=== PATIENT | male | born 1960 ===

== ENCOUNTER 2022-12-10 19:13 | Emergency (ER) | payer BC, SELFPAY ==
--- NOTE | ~2022-12-10 | CT_ITS ---
EXAMINATION: CT HEAD WITHOUT CONTRAST CLINICAL INFORMATION: Fall; intoxicated. COMPARISON: None. TECHNIQUE: Contiguous axial imaging was performed from the skull base to vertex without intravenous administration of contrast. Multiplanar reformatted images are submitted. This CT examination was performed using dose optimization techniques as appropriate, variously including the following: *Automated exposure control *Adjustment of mA and/or kV according to patient size (this includes techniques or standardized protocols for targeted exams where dose is matched to indication/reason for exam; i.e. extremities or head) *Use of iterative reconstruction technique DLP: 1052 mGy-cm (head and cervical spine) FINDINGS: The ventricular system is normal in size and configuration. The bilateral hemispheres and the cerebellum show no acute mass, hemorrhage, infarction or extra-axial collection. The basilar cisterns are patent, and the sulci are not widened. No acute osseous abnormality is seen. There is marked right maxillary sinusitis. The remaining paranasal sinuses are well aerated and clear. The mastoid air cells are well aerated and clear. There is a mild left frontal scalp hematoma CT/CT cervical spine wo IV con IMPRESSION: 1. No acute intracranial pathology. 2. There is a mild left frontal scalp hematoma. 3. There is marked right maxillary sinusitis. EXAMINATION: CT CERVICAL SPINE WITHOUT CONTRAST CLINICAL INFORMATION: Fall; intoxicated. COMPARISON: None. TECHNIQUE: Without the addition of intravenous contrast, multiple contiguous multidetector transaxial sections are obtained through the cervical spine. Multiplanar reformatted images are submitted. This CT examination was performed using dose optimization techniques as appropriate, variously including the following: *Automated exposure control *Adjustment of mA and/or kV according to patient size (this includes techniques or standardized protocols for targeted exams where dose is matched to indication/reason for exam; i.e. extremities or head) *Use of iterative reconstruction technique DLP: As above. FINDINGS: Vertebral body heights and alignment are normal. There is marked degenerative disease at C5-C6 and C6-C7, with disc space narrowing at vacuum phenomenon. No acute fracture or spondylolisthesis is seen. There is multi-level cervical spondylosis, most pronounced extending from C4-C5 through C6-C7. The posterior elements are intact. There is multi-level cervical facet arthropathy. The dens is intact. No prevertebral soft tissue swelling is seen. There is right apical pleural and parenchymal scarring. The bilateral lung apices appear otherwise clear. IMPRESSION: 1. No acute fracture or spondylolisthesis is seen. 2. There is multi-level cervical degenerative disc disease, spondylosis and facet arthropathy. Degenerative disc disease is most pronounced at C5-C6 and C6-C7, where it is marked. Fleischner guidelines were followed.
[2022-12-10 19:22] VITALS: BP 118/84; BP 138/84; PULSE 114; PULSE 94; RESP 18; TEMP 36.9; O2SAT 94; O2SAT 96; BMI 21.6
--- NOTE | 2022-12-10 19:43 | ED.FALL ---
HPI - Fall General Chief Complaint: Fall Stated Complaint: etoh seeking detox Time Seen by Provider: 12/10/22 19:15 Source: patient Mode of arrival: EMS History of Present Illness HPI Narrative: 62-year-old male who is brought in by EMS from that [facility] where his brother had take him for detox from alcohol. As per the brother the patient was at his home in the apartment and found by the brother on the floor. Patient reports he drinks daily and is a binge drinker and denies any history of seizures related to alcohol withdrawal. Patient does report he has high blood pressure. Related Data Allergies Allergy/AdvReac Type Severity Reaction Status Date / Time Unable to Assess Allergy Verified 12/10/22 19:35 Review of Systems Review of Systems: Pertinent positives and negatives as stated in [facility] Past Medical History Source: nursing notes reviewed Social History Social History Alcohol intake: current Alcohol intake frequency: 3 or more drinks per day Alcohol type: hard liquor Smoked in Last 30 Days: Yes Use of substances other than those prescribed or required for medical reasons: Yes Substance Use Type: Crack/Cocaine Last Used Substance: Weeks (ago) Physical Exam Vital Signs: Vital Signs: Last Vital Signs Temp 98.5 F 12/10/22 19:22 Pulse 94 12/10/22 19:22 Resp 18 12/10/22 19:22 BP 118/84 12/10/22 19:22 Pulse Ox 96 12/10/22 19:22 O2 Del Method Room Air 12/10/22 19:22 BMI result Body Mass Index 21.6 VITAL SIGNS: Reviewed. GENERAL: Well developed, well nourished, in no acute distress. HEAD: Normocephalic/there is up puncture site noted at the angle of the left jaw that is hemostatic EYES: PERRLA, EOMI EARS: Ext canals without abnormality, TMs non-bulging and non-erythematous NOSE: Nares patent bilateral OROPHARYNX: no oral lesions noted, posterior pharynx clear NECK: Supple, no adenopathy, no midline cervical spine tenderness or step-offs noted. LUNGS: Normal breath sounds. No adventitious sounds or accessory muscle use. SpO2<96> CARDIOVASCULAR: Regular rate and rhythm without noted murmurs ABDOMEN: Soft, non-tender, non-distended with bowel sounds. MUSCULOSKELETAL: No tenderness, deformities, or effusions noted on gross inspection. EXTREMITIES: No cyanosis, clubbing or edema. SKIN: Inspection of the skin reveals no rashes NEUROLOGIC: Alert and oriented x 4. Strength and sensation to light touch were grossly intact x 4. Medications Administered Discontinued Medications Generic Name Dose Route Start Last Admin Trade Name Freq PRN Reason Stop Dose Admin Diphtheria/Tetanus/Acell Pertussis 0.5 ml 12/10/22 19:35 12/10/22 20:26 Diphth,Pertus(Acell),Tet Adult 0.5 Ml Syringe IM 12/10/22 19:36 0.5 ml .ONCE ONE Administration Medical Decision Making Medical Decision Making [facility] Narrative: 62-year-old male with history and clinical presentation consistent with alcohol-related fall, will evaluate with CT of the head and neck although patient is nonfocal. Patient will also received Tdap for the injury at the left angle of the jaw. Will obtain basic labs and evaluate with see while. I reviewed all investigations and imaging studies in my interpretation is that patient has significant alcohol intoxication, he is requesting detox and is placed on a CIWA. Patient placed in physician observation because the patient needed more time for evaluation for alcohol detox. At the time observation was started the patient's vital signs were stable, patient is alert and oriented but slightly, neuro: Nonfocal, CV RRR, lungs clear Differential Diagnosis Please see the discussion above Lab Data Please see the discussion above 12/10/22 20:10 12/10/22 20:10 Labs: Lab Results 12/10/22 12/10/22 Range/Units 20:10 20:10 WBC 6.2 (4.8-10.8) X10*3/uL RBC 4.69 (4.60-5.80) X10*6/uL Hgb 11.4 L (14.0-18.0) g/dl Hct 37.1 L (42.0-52.0) % MCV 79.1 L (80.0-98.0) fL MCH 24.3 L (27.0-33.0) pg MCHC 30.7 L (31.0-36.0) g/dl RDW 16.3 H (11.0-16.0) % Plt Count 219 (160-400) X10*3/uL MPV 8.8 L (9.4-12.4) fL Immature Gran % (Auto) 0.2 (0.0-0.4) % Neut % (Auto) 52.4 (45-73) % Lymph % (Auto) 32.6 (20-40) % Mcdonough % (Auto) 10.1 (2-11) % Eos % (Auto) 3.9 (0-4) % Baso % (Auto) 0.8 (0-2) % Lymph # (Auto) 2.0 (1.2-4.9) X10*3/uL Mcdonough # (Auto) 0.6 (0.1-1.2) X10*3/uL Eos # (Auto) 0.2 (0.0-0.4) X10*3/uL Baso # (Auto) 0.1 (0.0-0.2) X10*3/uL Abs Immat Gran (auto) 0.01 (0.00-0.03) X10*3/uL Absolute Neuts (auto) 3.2 (2.0-8.3) x10*3/uL Absolute Nucleated RBC 0.000 (0.0-0.012) X10*3/uL Nucleated RBC % (auto) 0.0 (0.0-0.2) /100WBC Sodium 146 H (135-145) mmol/L Potassium 4.0 (3.3-5.1) mmol/L Chloride 114 H (96-108) mmol/L Carbon Dioxide 19 L (22-29) mmol/L Anion Gap 17 (12-20) BUN 18 H (9-16) mg/dL Creatinine 0.67 (0.5-1.4) mg/dL Estim Creat Clear Calc 98.4 Estimated GFR > 60 Random Glucose 99 (60-115) mg/dL Calcium 8.4 (8.4-10.2) mg/dL Total Bilirubin 0.4 (0.0-1.0) mg/dL AST 27 (5-37) U/L ALT 16 (0-40) U/L Alkaline Phosphatase 85 (39-117) U/L Total Protein 6.3 L (6.5-8.0) g/dL Albumin 3.5 (3.5-5.0) g/dL Ethyl Alcohol 385 H* mg/dL Radiology Impression Radiologist Impression: My interpretation is in agreement with radiology's findings. Discharge Plan Discharge Clinical Impression: Alcohol intoxication, Alcohol use disorder, Facial laceration Patient Disposition: Still a Patient
[2022-12-10 20:16] LABS: Basophils Absolute Auto 0.1 X10*3/uL (0.0-0.2); Basophils Percent Auto 0.8 % (0-2); Eosinophils Absolute Auto 0.2 X10*3/uL (0.0-0.4); Eosinophils Percent Auto 3.9 % (0-4); Hematocrit 37.1 % (42.0-52.0); Hemoglobin 11.4 g/dl (14.0-18.0); Imm Gran Abs Auto 0.01 X10*3/uL (0.00-0.03); Imm Gran Pct Auto 0.2 % (0.0-0.4); Lymphocytes Percent Auto 32.6 % (20-40); MANUAL DIFF FLAG NO; Mean Corpuscular HGB Conc 30.7 g/dl (31.0-36.0); Mean Corpuscular Hemoglobin 24.3 pg (27.0-33.0); Mean Corpuscular Volume 79.1 fL (80.0-98.0); Mean Platelet Volume 8.8 fL (9.4-12.4); Monocytes Absolute Auto 0.6 X10*3/uL (0.1-1.2); Monocytes Percent Auto 10.1 % (2-11); Neutrophils Absolute Auto 3.2 x10*3/uL (2.0-8.3); Neutrophils Percent Auto 52.4 % (45-73); Platelet Count 219 X10*3/uL (160-400); Red Blood Count 4.69 X10*6/uL (4.60-5.80); Red Cell Distribution Width 16.3 % (11.0-16.0); White Blood Count 6.2 X10*3/uL (4.8-10.8)
[2022-12-10] MEDS: Diphth,Pertus(ACell),Tet Adult 0.5 ML SYRINGE IM (20:26)
[2022-12-10 20:38] LABS: Alanine Aminotransferase 16 U/L (0-40); Albumin Level 3.5 g/dL (3.5-5.0); Alkaline Phosphatase 85 U/L (39-117); Anion Gap 17 (12-20); Aspartate Amino Transferase 27 U/L (5-37); Bilirubin Total 0.4 mg/dL (0.0-1.0); Blood Urea Nitrogen 18 mg/dL (9-16); Calcium 8.4 mg/dL (8.4-10.2); Carbon Dioxide 19 mmol/L (22-29); Chloride 114 mmol/L (96-108); Creatinine Clr Calc Pharmacy 98.4; Estimated Glomerular Filt Rate > 60; Ethanol 385 mg/dL; Glucose Random 99 mg/dL (60-115); Sodium 146 mmol/L (135-145); Total Protein 6.3 g/dL (6.5-8.0)
--- NOTE | 2022-12-10 21:26 | PC.NURSE ---
GINA performed - pt currently intoxicated per MD pradeep aware.
[2022-12-10] MEDS: Lidocaine HCl 1 % MPF 2 ML VIAL 4 ML INFILTRATI (23:10)
--- NOTE | 2022-12-10 23:59 | PC.NURSE ---
Sutures applied by provider, edges well approximated, no active bleeding present. Pt ambulated with steady gait to bathroom.
[2022-12-11] VITALS (8 sets, daily range): BP systolic 137–168; BP diastolic 90–98; PULSE 71–105; RESP 14–18; TEMP 36.6–37.4; O2SAT 94–99
[2022-12-11] MEDS: LORazepam 1 MG TABLET 2 MG PO (02:55)
--- NOTE | 2022-12-11 02:59 | PC.NURSE ---
On reassessment, pt noted to be tremulous. Assessed CIWA as charted, medications ordered and administered.
--- NOTE | 2022-12-11 03:16 | PC.NURSE ---
Medication ordered per MD Hendrickson per verbal, entered incorrectly under MD Aldana. MD Hendrickson aware.
--- NOTE | 2022-12-11 06:38 | PC.NURSE ---
Left VM for brother notifying him of discharge.
--- NOTE | 2022-12-11 07:34 | PC.NURSE ---
0700 talked with patient about plan of care. 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 pt denies withdrawal symptoms and sitting on bed calm and quietly. regular diet ordered. no pain reported at this time.
--- NOTE | 2022-12-11 07:58 | PHA.MEDREC ---
Pharmacy Consult ? Medication Reconciliation Pharmacy has completed the medication reconciliation.
--- NOTE | 2022-12-11 09:05 | PC.NURSE ---
pt's brother (ED Beeter [phone]) called to check on status.
--- NOTE | 2022-12-11 10:15 | MHC.RECOVRN ---
Met with pt in ED6 after pt expressed interest in ATS. Pt reports drinking 10+ nips daily x over 2 weeks. Pt reports he has been to ATS x 1 in August at [facility]. Pt reports having been in recovery for a short period of time after discharge. Pt was laid off from his job in June and evicted from his apartment in August. Has been staying with a friend since. 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 Pt educated on ATS process and technology limitations while inpatient. Pt unsure if he can go to treatment without having his laptop and phone. Pt calling brother to ask opinion and then will decide if he would like ATS referrals.
[2022-12-11] MEDS: Ondansetron ODT 4 MG TAB.RAPDIS TRANSLINGU (11:27)
--- NOTE | 2022-12-11 11:31 | PC.NURSE ---
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 awaiting bed placement. pt aware of plan of care.
--- NOTE | 2022-12-11 11:32 | PC.NURSE ---
Zofran given for active vomiting. will follow up on effectiveness.
--- NOTE | 2022-12-11 15:48 | MHC.RECOVSUP ---
Pt has been accepted at [facility] and they are sending a ride to pt the pt up. Provider is aware.
== END 2022-12-11 17:06 ==
PROVIDERS: Emergency Provider Student in an Organized Health Care Education/Training Program
DX: S01.81XA Laceration without foreign body of other part of head, initial encounter (principal); S00.81XA Abrasion of other part of head, initial encounter; R51.9 Headache, unspecified; M54.2 Cervicalgia; W45.8XXA Other foreign body or object entering through skin, initial encounter; Y93.9 Activity, unspecified; Y92.9 Unspecified place or not applicable; Y99.9 Unspecified external cause status; Z79.899 Other long term (current) drug therapy; Z23 Encounter for immunization
CPT/HCPCS: 36415; 70450; 72125; 80053; 80307; 85025; 90471; 90715; 99285